=== PATIENT | male | born 1960 | race Caucasian/White ===

== ENCOUNTER 2016-10-12 14:32 | Emergency (ER) | payer OTHER ==
[~2016-10-12] VITALS: Ht 177.8 cm; Wt 92.9 kg
[~2016-10-12 14:32] MED LIST: AUGMENTIN875 MG PO; BLOOD PRESSURE MEDIC; CADUET PO; Coumadin,Jantoven PO; Flexeril PO; Kenalog 0.1% Cream TP; LISINOPRIL-HCT1 EACH PO; Levaquin PO; Lopressor PO; Mobic PO; NEURONTIN300 MG PO; OXYCODONE HCL10 MG PO; OXYCODONE-ACET1 EACH PO; PERCOCET 5/31 TABLET PO; PRAVACHOL40 MG PO; PREVACID30 MG PO; PROMETHAZINE HC25 M1 PO; PROTONIX40 MG PO; Percocet 5/325,Endoc PO; STOOL SOFTENER100 MG PO; Tylenol Regular Stre PO; Ultram PO; VYTORIN 10/11 TABLET PO; Vytorin 10/20 PO; XARELTO15 MG PO
[2016-10-12 15:16] LABS: MCH 30.8 PG (29.0-34.0); MCHC 34.1 G/DL (30.0-36.0); MCV 90.2 FL (86-99); MEAN PLAT.VOLUME 9.5 uM^3 (9.0-12.4); PLATELET COUNT 267 K/uL (156-360); RBC DIS.WIDTH-CV 12.3 % (11.8-14.6); RBC DIS.WIDTH-SD 39.8 % (39-53); WHITE BLOOD COUNT 5.7 K/uL (4.1-10.2)
[2016-10-12 15:53] LABS: ANION GAP 11 MEQ/L (2-14); CHLORIDE 102 MEQ/L (99-109); POTASSIUM 3.6 MEQ/L (3.7-5.4); SAMPLE HEMOLYSIS CHECK 0; SAMPLE ICTERIC CHECK 0; SAMPLE LIPEMIA CHECK 0; SODIUM 139 MEQ/L (136-147)
[2016-10-12 15:58] LABS: ALKALINE PHOSPHATASE 74 IU/L (3-129); GFR ESTIMATE (CALCULATED) > 59 mL/min/; GLUCOSE 97 mg/dL (70-99); LIPASE 23 U/L (1.0-51.0); UREA NITROGEN (BUN) 13 mg/dL (9-23)
[2016-10-12 19:19] LABS: ADD MIUA? NO; BILIRUBIN NEGATIVE; BLOOD NEGATIVE; COLOR YELLOW ((YELLOW)); GLUCOSE (STRIP) NEGATIVE; KETONES 15; LEUKOCYTES NEGATIVE; NITRITE NEGATIVE; PH, URINE 6.5 (5-8); PROTEIN (STRIP) TRACE; SPECIFIC GRAVITY 1.028 (1.000-1.030); UCUL ADDED? NO
[2016-10-12] MEDS ORDERED: BENTYL20 MG PO (20:26)
[2016-10-12] MEDS ORDERED: ZOFRAN4 MG PO (20:26)
[2016-10-12 21:30] VITALS: BP 129/86
== END 2016-10-12 21:15 | disposition home or self-care (01) ==
LOC: EME 14:32
DX: R11.10 Vomiting, unspecified (principal); R19.7 Diarrhea, unspecified; E86.0 Dehydration; R10.32 Left lower quadrant pain; I10 Essential (primary) hypertension; E78.5 Hyperlipidemia, unspecified
CPT/HCPCS: 71020; 74176; 80053; 81003; 83690; 85027; 99281; 99285; J0500; J1170; J2405; J7030

== ENCOUNTER 2016-12-16 12:44 | Emergency (ER) | payer OTHER ==
[~2016-12-16] VITALS: Ht 175.3 cm; Wt 53.8 kg
[~2016-12-16 12:44] MED LIST changes: +BENTYL20 MG PO; +ZOFRAN4 MG PO
[2016-12-16 14:29] LABS: ADD MIUA? YES; BILIRUBIN NEGATIVE; BLOOD LARGE; COLOR AMBER ((YELLOW)); GLUCOSE (STRIP) NEGATIVE; KETONES NEGATIVE; LEUKOCYTES LARGE; NITRITE NEGATIVE; PROTEIN (STRIP) >=500; SPECIFIC GRAVITY 1.015 (1.000-1.030); UROBILINOGEN 0.2 MG/DL (0.2-1.0)
[2016-12-16 14:38] LABS: HEMATOCRIT 40.9 % (38.0-50.0); MCH 31.1 PG (29.0-34.0); MCHC 33.7 G/DL (30.0-36.0); MCV 92.1 FL (86-99); MEAN PLAT.VOLUME 9.3 uM^3 (9.0-12.4); PLATELET COUNT 347 K/uL (156-360); RBC DIS.WIDTH-CV 11.7 % (11.8-14.6); RED BLOOD COUNT 4.44 M/uL (4.00-5.50)
[2016-12-16 14:52] LABS: CHLORIDE 99 mEq/L (99-109); POTASSIUM 3.9 mEq/L (3.7-5.4); SODIUM 138 mEq/L (136-147)
[2016-12-16 14:53] LABS: GLUCOSE 111 mg/dL (70-99)
[2016-12-16 14:53] LABS: BACTERIA 1+ /HPF; BUDDING YEAST 4+; EPITHELIAL CELLS RARE /HPF; MUCUS 2+ /LPF; RED BLOOD CELLS TNTC /HPF (0-5); UCUL ADDED? YES; WHITE BLOOD CELLS TNTC /HPF (0-5); WHITE BLOOD CELLS CLUMP MANY /HPF (0-5)
[2016-12-16 14:55] LABS: ANION GAP 13 MEQ/L (2-14)
[2016-12-16 14:57] LABS: GFR ESTIMATE (CALCULATED) > 59 mL/min/
[2016-12-16 14:58] LABS: UREA NITROGEN (BUN) 14 mg/dL (9-23)
[2016-12-16] MEDS ORDERED: TORADOL10 MG PO (17:33)
[2016-12-16] MEDS ORDERED: ZOFRAN ODT4 MG PO (17:33)
[2016-12-16] MEDS ORDERED: FLOMAX0.4 MG PO (17:33)
[2016-12-16 17:44] VITALS: BP 107/72
== END 2016-12-16 17:54 | disposition home or self-care (01) ==
LOC: EME 12:44
DX: N20.0 Calculus of kidney (principal); K59.00 Constipation, unspecified; Z79.01 Long term (current) use of anticoagulants; G89.29 Other chronic pain; E78.5 Hyperlipidemia, unspecified; I10 Essential (primary) hypertension; K21.9 Gastro-esophageal reflux disease without esophagitis; Z86.711 Personal history of pulmonary embolism; Z86.718 Personal history of other venous thrombosis and embolism
CPT/HCPCS: 74020; 76770; 80048; 81003; 85027; 87077; 87086; 87186; 99281; 99284; J1885